=== PATIENT | female | born 2000 | race Caucasian/White ===

== ENCOUNTER 2022-01-26 01:51 | Outpatient (CLI) | payer SELFPAY ==
[2022-01-26] MEDS ORDERED: PRENTAB9 PO (08:26)
[2022-01-26] MEDS ORDERED: VITA100T59 PO (08:26)
[2022-01-26] MEDS ORDERED: IRON27TA2 PO (08:27)
== END 2022-01-26 04:30 | disposition home or self-care (01) ==
LOC: M LDO 01:51
PROVIDERS: ATTEND Obstetrics & Gynecology
DX: O47.1 False labor at or after 37 completed weeks of gestation (principal); O48.0 Post-term pregnancy; Z3A.41 41 weeks gestation of pregnancy

== ENCOUNTER 2022-01-26 08:01 | Inpatient (IN) | payer OTHER ==
[~2022-01-26] VITALS: Ht 162.6 cm; Wt 70.1 kg
[2022-01-26] VITALS (35 sets, daily range): BP systolic 110–179; BP diastolic 56–96
[2022-01-26] MEDS ORDERED: VITA100T59 PO (08:26)
[2022-01-26] MEDS ORDERED: PRENTAB9 PO (08:26)
[2022-01-26] MEDS ORDERED: IRON27TA2 PO (08:27)
[2022-01-26] MEDS ORDERED: METHYLERGONOVINE MALEATE 0.2 MG/ML VIAL (J2210) IM PRN (08:55)
[2022-01-26] MEDS ORDERED: LACTATED RINGER'S 1000 ML IV STA (08:55)
[2022-01-26] MEDS ORDERED: LR 1,000 ML IV SCH (08:55)
[2022-01-26] MEDS ORDERED: TRANEXAMIC ACID INJection 1,000 MG in NS 100 ML IV PRN (08:55)
[2022-01-26] MEDS ORDERED: CARBOPROST TROMETHAMINE 250 MCG/ML AMP IM PRN (08:55)
[2022-01-26] MEDS ORDERED: OXYTOCIN DRIP 30 UNITS in IV 1 EA IV PRN ×4 (08:55)
[2022-01-26] MEDS ORDERED: OXYTOCIN INJ 10 UNITS/ML VIAL (J2590) IM PRN (08:55)
[2022-01-26] MEDS: PRENATAL VITAMINS CHEWABLE TABLET PO SCH (09:00)
[2022-01-26 09:57] LABS: BASO # 0.1 10^3/uL (0.0-0.2); BASO % 0.3 % (0.0-1.0); EOS % 0.1 % (0.0-3.0); HEMATOCRIT 38.2 % (36.0-47.0); HEMOGLOBIN 13.1 g/dl (12.0-15.5); LYMPH # 1.1 10^3/uL (1.5-5.0); LYMPH % 5.9 % (24.0-44.0); MEAN CORPUSCULAR HEMOGLOBIN 30.2 pg (27.0-33.0); MEAN CORPUSCULAR HGB CONC 34.3 g/dl (32.0-36.5); MONO # 0.8 10^3/uL (0.0-0.8); MONO % 4.2 % (2.0-8.0); NEUTROPHILS % 87.8 % (36.0-66.0); PLATELET COUNT, AUTOMATED 231 10^3/uL (150-450); RED BLOOD COUNT 4.34 10^6/uL (4.00-5.40); WHITE BLOOD COUNT 18.2 10^3/uL (4.0-10.0)
[2022-01-26] MEDS ORDERED: diphenhydrAMINE 50MG/ML VIAL (J1200) IV PRN (10:15)
[2022-01-26] MEDS ORDERED: EPIDURAL/PCA KEYS XX PRN (10:15)
[2022-01-26] MEDS ORDERED: ePHEDrine SULFATE 25 MG/5 ML(5MG/ML) SYRINGE IVP PRN (10:15)
[2022-01-26] MEDS ORDERED: LR 500 ML IV PRN (10:15)
[2022-01-26] MEDS ORDERED: NALOXONE INJ 0.4MG/1ML VIAL (J2310 PER 1MG) IV PRN (10:15)
[2022-01-26] MEDS ORDERED: ONDANSETRON 4MG 2ML VIAL IV PRN (10:15)
[2022-01-26] MEDS: FENTANYL/ROPIVACAINE/NACL BAG 100 ML EPIDURAL SCH ×2 (10:40→20:15)
[2022-01-26 11:16] LABS: HIV 1&2 SCREEN CENTAUR NEGATIVE (NEGATIVE)
[2022-01-26] MEDS: LR 1,000 ML IV SCH ×2 (11:55→21:05)
[2022-01-26] MEDS ORDERED: OXYTOCIN DRIP 30 UNITS in IV 1 EA IV SCH (13:05)
[2022-01-26] MEDS ORDERED: ACETAMINOPHEN 500 MG TAB PO PRN (18:55)
[2022-01-26] MEDS ORDERED: DOCUSATE SODIUM 100MG CAPSULE PO PRN (18:55)
[2022-01-26] MEDS ORDERED: IBUPROFEN 600MG TAB PO PRN (18:55)
[2022-01-26] MEDS ORDERED: DIBUCAINE 1% OINTMENT 30GM TOP PRN (18:55)
[2022-01-26] MEDS ORDERED: ACETAMINOPHEN TAB 650MG DOSE (2X325MG) PO PRN (18:55)
[2022-01-26] MEDS ORDERED: IBUPROFEN 800 MG TAB PO PRN (18:55)
[2022-01-27] MEDS: LR 1,000 ML IV SCH (05:05)
[2022-01-27 05:49] VITALS: BP 97/55
[2022-01-27] MEDS: FENTANYL/ROPIVACAINE/NACL BAG 100 ML EPIDURAL SCH (06:15)
[2022-01-27] MEDS: PRENATAL VITAMINS CHEWABLE TABLET PO SCH (08:16)
[2022-01-27 18:00] VITALS: BP 111/61
[2022-01-28 06:00] VITALS: BP 115/61
[2022-01-28] MEDS: PRENATAL VITAMINS CHEWABLE TABLET PO SCH (09:09)
[2022-01-28] MEDS ORDERED: ACET1TAB55 PO (10:05)
[2022-01-28] MEDS ORDERED: IBUP-1022 PO (10:05)
[2022-01-28] MEDS ORDERED: INFLUENZA QUADRIVALENT PF VACCINE 0.5ML SYRINGE IM.IMMUN ONE (13:30)
== END 2022-01-28 14:00 | disposition home or self-care (01) | DRG 807 ==
LOC: M LDO 08:01 → M LDI 08:44 → M OBS 21:49
PROVIDERS: ADMIT Advanced Practice Midwife; ATTEND Advanced Practice Midwife
PROC: 10E0XZZ Delivery of Products of Conception, External Approach (ICD-10-PCS; principal; 2022-01-26)
PROC: 0HQ9XZZ Repair Perineum Skin, External Approach (ICD-10-PCS; 2022-01-26)
DX: O48.0 Post-term pregnancy (principal); Z37.0 Single live birth; Z3A.40 40 weeks gestation of pregnancy; O69.81X0 Labor and delivery complicated by cord around neck, without compression, not applicable or unspecified; O70.0 First degree perineal laceration during delivery